=== PATIENT | male | born 1940 | race Two or more races ===

== ENCOUNTER 2024-11-29 12:31 | Emergency (ER) | payer MEDICARE, MEDICAID, SELFPAY ==
[2024-11-29 12:49] VITALS: BP 123/88; PULSE 86; RESP 18; TEMP 37; O2SAT 99
--- NOTE | 2024-11-29 12:51 | XR_ITS ---
Examination: Tibia-Fibula, left , 2 views Technique: Tibia-fibula AP lateral 2 views Date and time of exam: November 29, 2024 at 1157 hours INDICATIONS: Onset left leg pain today. FINDINGS: Severe osteopenia No fracture No cortical bone destruction Soft tissue vascular calcification IMPRESSION: No fracture or cortical bone obstruction
[2024-11-29] MEDS: ACETAMINOPHEN 325 MG TABLET 650 MG PO (13:38)
--- NOTE | 2024-11-29 14:29 | PD.EDRME ---
Rapid Medical Screening Exam RME Arrival date/time: 11/29/24 12:31 84-year-old male with history of cognitive decline/dementia versus Alzheimer presents with daughter who reports patient had a ground-level fall today Imaging ordered Chief Complaint: Fall Time Seen by Provider: 11/29/24 12:52 Vital signs: Vital Signs Temperature 98.6 F 11/29/24 12:49 Pulse Rate 86 11/29/24 12:49 Respiratory Rate 18 11/29/24 12:49 Blood Pressure 123/88 H 11/29/24 12:49 Pulse Oximetry (%) 99 11/29/24 12:49 Oxygen Delivery Method Room Air 11/29/24 12:49
== END 2024-11-29 14:39 | disposition left against medical advice (07) ==
LOC: SERX 13:32
PROVIDERS: Emergency Provider Family Medicine
DX: M79.605 Pain in left leg (principal); Z53.29 Procedure and treatment not carried out because of patient's decision for other reasons
CPT/HCPCS: 73590; 99281; A9270